=== PATIENT | male | born 1945 | race Caucasian/White ===

== ENCOUNTER → 2021-01-04 | Outpatient (CLI) | payer MEDICARE | END | disposition home or self-care (01) | LOC: CVU 12:56 | PROVIDERS: ATTEND Surgery | DX: I08.8 Other rheumatic multiple valve diseases (principal); I70.233 Atherosclerosis of native arteries of right leg with ulceration of ankle; I70.243 Atherosclerosis of native arteries of left leg with ulceration of ankle | CPT/HCPCS: 93306; 93356; 93922; 93925 ==

== ENCOUNTER → 2021-03-09 | Outpatient (CLI) | payer MEDICARE ==
[~2021-03-09] MED LIST: OMNIPAQUE 350 MG/ML, 100ML BOTTLE ONE
== END | disposition home or self-care (01) ==
LOC: CFH 12:52
PROVIDERS: ATTEND Surgery
DX: R91.8 Other nonspecific abnormal finding of lung field (principal); N28.1 Cyst of kidney, acquired; N20.0 Calculus of kidney; I75.89 Atheroembolism of other site
CPT/HCPCS: 71275; 74175; 82565; Q9967